=== PATIENT | male | born 1990 | race Caucasian/White ===

== ENCOUNTER 2020-07-21 16:04 | Emergency (ER) | payer OTHER ==
[~2020-07-21 16:04] MED LIST: FLOMAX 0.4 MG0.4 MG PO; IBU800 MG PO; NORCO 5-325 TA1 EACH PO; NORCO 7.5-3251 EACH PO; ZOFRAN ODT 4 MG4 MG SL
[2020-07-21] MEDS ORDERED: NORCO 5-325 TA1 EACH PO (17:45)
[2020-07-21 19:23] LABS: HEMOGLOBIN 15.6 gm/dl (14.0-17.5); RED BLOOD COUNT 5.5 M/UL (4.20-5.50); WHITE BLOOD COUNT 15.2 K/UL (4.5-11.0)
[2020-07-21 19:48] LABS: BUN/CREATININE RATIO 22 (0-10)
== END 2020-07-21 20:45 | disposition home or self-care (01) ==
LOC: ER1 16:04
PROVIDERS: Physician Assistant
DX: S32.039A Unspecified fracture of third lumbar vertebra, initial encounter for closed fracture (principal); M54.2 Cervicalgia; I10 Essential (primary) hypertension; V43.62XA Car passenger injured in collision with other type car in traffic accident, initial encounter; Y92.410 Unspecified street and highway as the place of occurrence of the external cause
CPT/HCPCS: 71045; 72125; 72131; 80053; 82550; 82553; 83735; 83874; 84484; 85025; 93005; 96372; 99284; J1885

== ENCOUNTER → 2020-07-28 | Outpatient (CLI) | payer OTHER | LOC: KOH-I 09:19 | DX: M54.5 Low back pain (principal); M51.26 Other intervertebral disc displacement, lumbar region; R93.7 Abnormal findings on diagnostic imaging of other parts of musculoskeletal system | CPT/HCPCS: 72148 ==

== ENCOUNTER 2022-02-25 17:31 | Emergency (ER) | payer OTHER ==
[2022-02-25] MEDS ORDERED: AMOX TR-K CLV1 EAC4 PO (20:57)
[2022-02-25] MEDS ORDERED: IBUPROFEN600 MG PO (20:57)
== END 2022-02-25 21:20 | disposition home or self-care (01) ==
LOC: ER1 17:31
DX: S91.331A Puncture wound without foreign body, right foot, initial encounter (principal); Z87.442 Personal history of urinary calculi; Z88.8 Allergy status to other drugs, medicaments and biological substances; W45.0XXA Nail entering through skin, initial encounter; Z23 Encounter for immunization
CPT/HCPCS: 73630; 90471; 90715; 99283